=== PATIENT | female | born 1985 | race African-American/Black ===

== ENCOUNTER → 2017-12-14 | Day surgery (SDC) | payer OTHER ==
[~2017-12-14] VITALS: Ht 165.1 cm; Wt 57.5 kg
[~2017-12-14] MED LIST: CHLORHEXIDINE GLUCONATE 2 % 1 PACK (2 CLOTHS) TOPICAL PRN; DEXAMETHASONE SOD PHOS 4 MG/ML VIAL IV ONE; DO NOT ADM ANY ANTICOAGULANT DRUGS PRN; FERR325T18 PO; KETOROLAC TROMETHAMINE 30 MG/ML (IVP) VIAL IV PUSH PRN; LACTATED RINGER'S 1000 ML IV PRN; LIDOCAINE 1%/EPINEPHrine 1:100,000 SOLN 30 ML VIAL ONE; LIDOCAINE HCL 1% PF 5 ML SYRINGE OTHER ONE; MAPA500C PO; METOPROLOL TARTRATE 25 MG TAB PO PRN; MIDAZOLAM HCL 2 MG/2 ML VIAL ONE; ONDANSETRON HCL 4 MG/2 ML VIAL IV ONE; POVIDONE IODINE 5% (ANTISEPSIS KIT) 4 APPLICATIONS EACH NARE PRN; PROPOFOL 200 MG/20 ML AMP IV ONE; SODIUM CHLORID 0.9% 500 ML IV PRN; SUCCINYLCHOLINE CHLORIDE 200 MG/10 ML VIAL IV ONE; oxyCODONE/ACETAMINOPHEN 5 MG/325 MG TAB PO PRN
--- NOTE | 2017-12-14 08:36 | MP ---
cc: Karrie Moreno MD, Christopher Boulting, Edmund DATE OF OPERATION: 12/14/2017 DATE OF PROCEDURE: 12/14/2017 PREOPERATIVE DIAGNOSIS: Squamous cell carcinoma of the cervix. 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 PROCEDURE PERFORMED: Examination under anesthesia, cervix biopsy, cystoscopy, proctoscopy. SURGEON: Karrie Moreno MD [employer]: Latha branch assistant. ANESTHESIA: General endotracheal anesthesia. ESTIMATED BLOOD LOSS: 20 mL. INDICATIONS FOR PROCEDURE: This 32-year-old female found on exam and imaging to have a large cervical mass after presenting to the emergency room with heavy bleeding. Biopsy was obtained, which shows invasive squamous cell carcinoma. MRI and CT scan show a 5-6 cm tumor that seems to infiltrate to tissue adjacent to the cervix. There was no overt hydronephrosis or overt adenopathy. She has had a subsequent PET CT scan, which confirms these findings, shows a very large PET-avid mass in the cervix. Records not immediately available, but I believe that showed no PET-avid adenopathy. This will be reviewed further. She has been seen in our office and she is seen again in the preop holding area, where she is counseled regarding recommendations for information gathering procedure to further understand the extent of the tumor, assign clinical stage and from that information, make treatment recommendations. She expresses good understanding and agrees to move forward. FINDINGS: On exam under anesthesia, there is no appreciably enlarged inguinal lymph nodes. External genitalia without mass or lesion. On speculum, the entire cervix is replaced with tumor. The cervix itself and the tumor are both quite prominent, estimated diameter approximately 6 cm. There is obvious parametrial extension bilaterally and on the left side, the cervix is retracted up toward the left upper vagina with some extension to the proximal vagina and the infiltration of the parametria extends to the left pelvic sidewall. Frozen section biopsy confirms invasive squamous cell carcinoma. Cystoscopy using a 30-degree scope shows normal mucosa circumferentially. The ureteral ostia are visualized bilaterally with good efflux of urine. Proctosigmoidoscopy to a depth of 18 cm shows no abnormal mucosa. No mass, polyp, or tumor. Extrinsic compression on the rectum above that level precludes passage of the rigid proctosigmoidoscope. Overall, these findings are consistent with a clinical stage IIIB invasive squamous cell carcinoma of the cervix. DESCRIPTION OF PROCEDURE: She was taken to the operating room and placed in dorsal lithotomy position, after general endotracheal anesthesia was administered, timeout was undertaken. She was identified by site recognition and hospital ID bracelet and the proposed procedure was reviewed and confirmed. She was carefully positioned in lithotomy position. Exam under anesthesia was performed with findings as described above. She was prepped and draped in sterile fashion. Cervix biopsy was obtained. Pressure was applied with a Ray-Megha sponge. Cystoscopy was performed using a 30-degree scope with findings as described above. The bladder was drained. Rigid proctosigmoidoscopy was performed with findings as described above. The proctoscope was withdrawn. Change of sterile gloves was undertaken. Pelvic exam was repeated as the Ray-Megha was removed. Biopsy site was fairly hemostatic. Topical Monsel's solution was applied to assist in continued hemostasis and Surgicel SNoW was placed across the entire cervical tumor. There were no remaining foreign objects in the vagina other than the intentionally placed hemostatic agent. Preliminary and final counts were correct. She was returned to dorsal supine position and was pending reversal of anesthesia when I left the operating room to precede her to the postanesthesia care unit. MD KATERYNA Ballard/DANUTA , 08:11 AM , 08:35 AM
[2017-12-14 10:15] VITALS: BP 88/55; PULSE 88; RESP 18; TEMP 97.8; O2SAT 100
== END | disposition home or self-care (01) ==
LOC: HSDC 05:20
PROVIDERS: ATTEND Obstetrics & Gynecology Gynecologic Oncology
DX: C53.9 Malignant neoplasm of cervix uteri, unspecified (principal); D25.9 Leiomyoma of uterus, unspecified; K21.9 Gastro-esophageal reflux disease without esophagitis; Z01.818 Encounter for other preprocedural examination
CPT/HCPCS: 00940; 45300; 57500; 86850; 86900; 86901; 88305; 88331; J0330; J1100; J1885; J2250; J2405; J3010; J7120